=== PATIENT | male | born 1965 | race Caucasian/White ===

== ENCOUNTER 2017-03-29 01:00 | Emergency (ER) | payer OTHER ==
[2017-03-29] MEDS ORDERED: Labetalol 100 MG/20 ML MDV IVPUSH ONE (02:15)
[2017-03-29] MEDS ORDERED: fentaNYL 100 MCG/2 ML SDV IVPUSH ONE (02:15)
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
[2017-03-29 02:59] VITALS: BP 177/110
[2017-03-29 07:29] LABS: CHLORIDE,CL 100 mEq/L (98-106); SODIUM,NA 139 mEq/L (136-145)
[2017-03-29] MEDS ORDERED: Labetalol 100 MG/20 ML MDV IV ONE (10:00)
== END 2017-03-29 02:00 ==
LOC: CC.ED 01:00
DX: S06.9X1A Unspecified intracranial injury with loss of consciousness of 30 minutes or less, initial encounter (principal); I10 Essential (primary) hypertension; M25.511 Pain in right shoulder; M54.2 Cervicalgia; V81.6XXA Occupant of railway train or railway vehicle injured by fall from railway train or railway vehicle, initial encounter
CPT/HCPCS: 36415; 70450; 71010; 72125; 73060; 80048; 85025; 85610; 85730; 99285; J3010; 96374; 96375